=== PATIENT | male | born 1970 | race Caucasian/White ===

== ENCOUNTER 2016-10-17 13:09 | Emergency (ER) | payer BC ==
[~2016-10-17] VITALS: Ht 152.4 cm; Wt 77.1 kg
[~2016-10-17 13:09] MED LIST: FURO-149 PO; SPIR100T PO
[2016-10-17 13:20] VITALS: BP_SYST 136
[2016-10-17 14:43] LABS: CREATININE 0.64 mg/dL (0.55-1.30); POTASSIUM 3.2 mmol/L (3.5-5.1)
[2016-10-17 14:48] LABS: INR 1.5 (0.80-1.20); PROTHROMBIN TIME 16.1 SECS (9.5-12.5)
[2016-10-17 14:51] LABS: ALBUMIN 2.9 g/dL (3.4-4.8); EOSINOPHILS # (AUTO) 0.1 K/uL (0.0-0.4); EOSINOPHILS % (AUTO) 3.4 % (0.0-4.0); HEMATOCRIT 39.4 % (36-54); HEMOGLOBIN 13.4 g/dL (14.0-18.0); LYMPHOCYTES # (AUTO) 0.8 K/uL (1.0-5.5); LYMPHOCYTES % (AUTO) 21.4 % (20.5-51.5); MEAN CORPUSCULAR HEMOGLOBIN 32 pg (27-31); MEAN CORPUSCULAR HGB CONC 34 % (32-36); MEAN CORPUSCULAR VOLUME 94 fL (79.0-98.0); MONOCYTES # (AUTO) 0.6 K/uL (0.0-1.0); MONOCYTES % (AUTO) 15.8 % (1.7-9.3); NEUTROPHILS # (AUTO) 2.4 K/uL (1.8-7.7); NEUTROPHILS % (AUTO) 58.4 % (40.0-70.0); RED CELL DISTRIBUTION WIDTH 15.4 % (9.0-15.0); TOTAL BILIRUBIN 4.1 mg/dL (0.0-1.0); TOTAL PROTEIN, SERUM 5.9 g/dL (6.4-8.3); WHITE BLOOD COUNT (AUTO) 3.9 K/uL (4.8-10.8)
[2016-10-17 15:06] LABS: PLATELET COUNT (AUTO) 32 K/uL (130-430)
[2016-10-17] MEDS ORDERED: CAT.1 PO (15:44)
[2016-10-17] MEDS ORDERED: LORA2TAB95 PO (15:44)
[2016-10-17] MEDS ORDERED: PROM25TA15 PO (15:44)
[2016-10-17] MEDS ORDERED: TRAZ-126 PO (15:44)
[2016-10-17] MEDS ORDERED: HYDR-2472 PO (15:44)
[2016-10-17] MEDS ORDERED: NEU300 PO (15:44)
[2016-10-17 16:05] LABS: BILIRUBIN,URINE NEGATIVE (NEGATIVE); BLOOD, URINE NEGATIVE (NEGATIVE); CLARITY/URINE CLEAR (CLEAR); COLOR,URINE YELLOW (YELLOW); GLUCOSE,URINE NEGATIVE (NEGATIVE); KETONES,URINE NEGATIVE (NEGATIVE); LEUKOCYTE ESTERASE ,URINE NEGATIVE (NEGATIVE); NITRITE, URINE NEGATIVE (NEGATIVE); PROTEIN URINE NEGATIVE (NEGATIVE); UROBILINOGEN,URINE 0.2 (0.2-1.0)
[2016-10-17 20:26] VITALS: BP_SYST 136
== END 2016-10-17 20:26 | disposition home or self-care (01) ==
LOC: SED 13:09
DX: S00.83XA Contusion of other part of head, initial encounter (principal); K74.60 Unspecified cirrhosis of liver; Z79.899 Other long term (current) drug therapy; W22.8XXA Striking against or struck by other objects, initial encounter; Y93.89 Activity, other specified; Y92.092 Bedroom in other non-institutional residence as the place of occurrence of the external cause; Y99.8 Other external cause status
CPT/HCPCS: 36415; 70486-TC; 71010; 80053; 81003; 85025; 85610-TC; 85730-TC; 86886; 86900; 86901; 93005; 99285